=== PATIENT | male | born 1950 | race Caucasian/White ===

== ENCOUNTER → 2024-03-07 18:57 | Outpatient (REF) | payer MEDICARE, OTHER, SELFPAY | LOC: MRI 3T 18:57 | PROVIDERS: ATTENDING PHYSICIAN Specialist; FAMILY PHYSICIAN Family Medicine | DX: R97.20 Elevated prostate specific antigen [PSA] (principal) | CPT/HCPCS: 72197; A9575 ==

== ENCOUNTER → 2024-03-20 09:27 | Outpatient (REF) | payer MEDICARE, OTHER, SELFPAY | LOC: CLAB 09:27 | PROVIDERS: ATTENDING PHYSICIAN Specialist | DX: R97.20 Elevated prostate specific antigen [PSA] (principal) | CPT/HCPCS: 88305; 88344 ==

== ENCOUNTER 2024-04-23 11:24 | Outpatient (RCR) | payer MEDICARE, OTHER, SELFPAY | END 2024-04-23 23:59 | disposition home or self-care (01) | LOC: RPT 11:24 | PROVIDERS: ATTENDING PHYSICIAN Specialist; FAMILY PHYSICIAN Family Medicine | DX: M62.81 Muscle weakness (generalized) (principal); C61 Malignant neoplasm of prostate; Z73.6 Limitation of activities due to disability | CPT/HCPCS: 97162; 97530 ==

== ENCOUNTER 2024-06-04 06:08 | Inpatient (IN) | payer MEDICARE, OTHER, SELFPAY ==
[2024-05-20 11:30] LABS: Hemoglobin 15.8 g/dL (13.0-18.0); Mean Corp Hgb Conc. 35.9 g/dL (33.0-37.0); Mean Corpuscular Hgb 35.2 pg (27.0-31.0); Platelet Count 187 10^3/uL (130-400); Red Blood Cell Count 4.49 10^6/uL (4.70-6.10); Red Cell Dist. Width 12.3 % (11.5-14.5); White Blood Cell Count 5.9 10^3/uL (4.8-10.8)
[2024-05-20 11:37] LABS: INR 0.98; PT 13.3 Sec (11.4-14.6)
[2024-05-20 11:38] LABS: APTT 31.1 Sec (23.4-35.0)
[2024-05-20 11:58] LABS: Blood Urea Nitrogen 20 mg/dl (9-20); Calcium 9.4 mg/dl (8.4-10.2); Carbon Dioxide 30 mmol/L (22-30); Chloride 98 mmol/L (98-107); Glucose 90 mg/dl (70-99); Sodium 138 mmol/L (135-145); eGFR > 60.00
[2024-05-20 12:05] LABS: Potassium 3.4 mmol/L (3.5-5.1)
[2024-05-20 13:41] VITALS: BMI 27.9
--- NOTE | 2024-05-30 09:44 | PTCARENOTE ---
Patients 05/20 jermain Dawkins @ Dr. Johnson office notified
--- NOTE | 2024-05-30 15:28 | PTCARENOTE ---
K+3.4, Dr. Khanna Notified, no additional interventions requested.
[2024-06-04] VITALS (16 sets, daily range): BP systolic 126–151; BP diastolic 74–98; BMI 27.9
[2024-06-04] MEDS: NEBCIN 480 MG/100 ML ENEMA 1 BOTTLE RECTAL (06:53)
[2024-06-04] MEDS: NORMOSOL-R/PLASMALYTE-A 1000 IV (06:53)
--- NOTE | 2024-06-04 09:45 | W.IMMPOSTOP ---
Surgical Immed Post Op Note
-
Primary Surgeon: Elizabeth
Assisting Surgeon: Dwain
Pre-op Diagnosis: Prostate cancer
Post-op Diagnosis: Same
Procedure Performed: Radical perineal prostatectomy, bladder neck reconstruction
Anesthesia Type:GET
Specimen / Cultures: Prostate, bladder neck and urethral frozen sections
Estimated Blood Loss: 150 ml
Complications: None
[2024-06-04] MEDS: DETROL LA 4 MG PO (10:13)
[2024-06-04] MEDS: DILAUDID 0.5 MG IV ×2 (10:14→10:35)
[2024-06-04 10:15] LABS: Hematocrit 37.3 % (39.0-52.0)
[2024-06-04] MEDS: TORADOL 15 MG IV ×3 (10:22→21:55)
[2024-06-04 10:26] LABS: Blood Urea Nitrogen 16 mg/dl (9-20); Calcium 7.9 mg/dl (8.4-10.2); Carbon Dioxide 29 mmol/L (22-30); Chloride 102 mmol/L (98-107); Estimated Creatinine Clearance 74 ml/min; Glucose 104 mg/dl (70-99); Potassium 3.2 mmol/L (3.5-5.1); Sodium 138 mmol/L (135-145); eGFR > 60.00
[2024-06-04] MEDS: VALIUM INJECTION 5 MG IV (10:43)
--- NOTE | 2024-06-04 11:08 | SUR.PHASEI ---
patient in pacu post prostatectomy - - medicated with dilaudid x2 for pain, rectal pressure- still very uncomfortable, given toradol, detrol and then given valium 5mg slowly - comfort increased with valium, nasal cannula restarted for sats drop to
88% after Valium. taking oral fluids well. Dressing reinforced on arrival with 5x9 dressing. ice pack to rectal area.
--- NOTE | 2024-06-04 11:40 | PTCARENOTE ---
Pt received from the PACU via bed. Transport was w/o incident. Pt is AAOx3, HRR, lungs are clear, resp. easy. Pt with bulky dressing to Perineum, C/D/I. Pt does have a sherin drain to perineal area. Drainage to be expected. Will reinforce dressing
or change PRN. Dahl cath intact draining sl blood tinged urine. VSS, Pt is afebrile. Pt instructed on Plan of care, Pt verbalized understanding of instructions. Call tavera is within reach.
[2024-06-04] MEDS: 0.45% NACL with KCL 20 MEQ 1000 IV ×2 (14:03→20:29)
[2024-06-04] MEDS: MORPHINE SULFATE 4 MG IV ×2 (14:07→18:02)
[2024-06-04] MEDS: PERCOCET 5/325 1 TABLET PO (16:46)
[2024-06-04] MEDS: MYLICON 160 MG PO (16:47)
[2024-06-04] MEDS: PROCARDIA XL (EXTENDED RELEASE) 30 MG PO (16:47)
[2024-06-04] MEDS: POLYSPORIN/DOUBLE ANTIBIOTIC 1 APPLIC TOPICAL (20:20)
[2024-06-04 20:32] LABS: Blood Urea Nitrogen 16 mg/dl (9-20); Carbon Dioxide 30 mmol/L (22-30); Chloride 96 mmol/L (98-107); Estimated Creatinine Clearance 74 ml/min; Glucose 121 mg/dl (70-99); Potassium 4.2 mmol/L (3.5-5.1); Sodium 133 mmol/L (135-145); eGFR > 60.00
[2024-06-04] MEDS: ATIVAN 0.5 MG PO (23:32)
[2024-06-04] MEDS: MELATONIN 5 MG PO (23:32)
[2024-06-05] MEDS: 0.45% NACL with KCL 20 MEQ 1000 IV ×3 (03:23→20:21)
[2024-06-05] MEDS: TORADOL 15 MG IV ×3 (03:23→15:50)
--- NOTE | 2024-06-05 03:47 | DOWNTIME ---
There was a [employer] Downtime on 06/05/2024 from 0100 to 06/05/2023 at 0205 . Downtime documentation of patient's care, including medication administrations, has been reconciled in the electronic record per guidelines. Refer to the
patient's paper chart under the miscellaneous tab to see printed paper medication records and downtime forms.
[2024-06-05 03:50] VITALS: BP 121/74
[2024-06-05 07:45] VITALS: BP 127/70
[2024-06-05] MEDS: LEVAQUIN 100 IV (07:54)
[2024-06-05] MEDS: ORETIC 25 MG PO (07:55)
[2024-06-05] MEDS: COLACE 100 MG PO (07:55)
[2024-06-05] MEDS: PROCARDIA XL (EXTENDED RELEASE) 90 MG PO (07:55)
[2024-06-05] MEDS: VALTREX 1000 MG PO (07:55)
[2024-06-05] MEDS: TUMS CHEWABLE TABLET PO (07:56)
[2024-06-05] MEDS: POLYSPORIN/DOUBLE ANTIBIOTIC 1 APPLIC TOPICAL ×2 (07:56→20:03)
[2024-06-05 08:14] LABS: Hematocrit 31.7 % (39.0-52.0); Hemoglobin 11.4 g/dL (13.0-18.0); Mean Corpuscular Hgb 34.7 pg (27.0-31.0); Mean Corpuscular Volume 96.4 fL (80.0-94.0); Mean Platelet Volume 10.4 fL (7.4-10.4); Platelet Count 130 10^3/uL (130-400); Red Blood Cell Count 3.29 10^6/uL (4.70-6.10); Red Cell Dist. Width 12.4 % (11.5-14.5); White Blood Cell Count 9.7 10^3/uL (4.8-10.8)
[2024-06-05 08:34] LABS: Blood Urea Nitrogen 14 mg/dl (9-20); Calcium 7.6 mg/dl (8.4-10.2); Carbon Dioxide 28 mmol/L (22-30); Chloride 101 mmol/L (98-107); Estimated Creatinine Clearance 83 ml/min; Glucose 85 mg/dl (70-99); Potassium 3.4 mmol/L (3.5-5.1); Sodium 134 mmol/L (135-145); eGFR > 60.00
[2024-06-05] MEDS: PERCOCET 5/325 1 TABLET PO ×3 (09:13→20:03)
--- NOTE | 2024-06-05 09:29 | W.PN.SURGUPD ---
Addendum entered and electronically signed by Aquiles Johnson MD 06/11/24 10:21:
Please note: the patient's hypokalemia, not hyponatremia, is likely due to use of HCTZ
Addendum entered and electronically signed by Aquiles Johnson MD 06/11/24 09:56:
The patient has hyponatremia, which he has had prior to hospitalization. It is likley due to use of HCTZ and has been addressed with the patient's PCP
His low serum Na+ is an insignificant lab value
His anemia is expected and related to surgical acute blood loss
Original Note:
Surgical Update
Surgical Update
Stable 1 day s/p radical perineal prostatectomy
Afeb
VSS
Tolerating diet
Flatus
Dahl draining clear urine
Dressing dry
--- NOTE | 2024-06-05 12:25 | CM ---
Patient seen at bedside.
IA completed. CM Consult completed VN-prefer [facility]-referral entered
Lives with in 2 story home, 0 steps, 12 steps to second floor
PLOF: Independent
Denies DME
Denies insecurities
Denies HH/Rehab
PCP: Gerson Luna
Pharmacy: [facility], [place]
PLAN: home, [facility]
--- NOTE | 2024-06-05 13:12 | VNURNOTE ---
Home Health Liaison met with patient at bedside to discuss [facility] nurse/therapy, visits, schedule and homebound status. Reviewed that visits at home will be 2-3 x per week to assess and teach medical management. Reviewed with pt that standard to have
VN ordered after rad prostatectomy. Multiple questions answered. VN brochure provided with contact information. Patient is aware that [facility] will contact them for start of care in 1-2 days after discharge from . Patient wants to speak w/his
about services. 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 Patient stated she would be in. Will follow up. [facility] referral accepted in [facility].
[2024-06-05 15:32] VITALS: BP 136/92
[2024-06-05] MEDS: 0.45% NACL with KCL 20 MEQ IV (15:50)
[2024-06-05] MEDS: PROCARDIA XL (EXTENDED RELEASE) 30 MG PO (17:51)
[2024-06-05] MEDS: ATIVAN 0.5 MG PO (23:05)
[2024-06-05] MEDS: MORPHINE SULFATE 4 MG IV (23:09)
[2024-06-05 23:36] VITALS: BP 138/82
[2024-06-06] MEDS: PERCOCET 5/325 1 TABLET PO ×2 (00:46→12:37)
--- NOTE | 2024-06-06 05:34 | PTCARENOTE ---
06/05: On-call urology Dr. Roque made aware sherin drain fell out. No new orders at this time.
[2024-06-06 07:45] VITALS: BP 147/92
--- NOTE | 2024-06-06 08:06 | PN.CDI ---
CDI
- -
CDI:
Physician Documentation Request
Admit Date: 06/04/24 06:08
Dear Doctor Elizabeth,
Patient admitted with prostate cancer s/p radical perineal prostatectomy, bladder neck reconstruction.
Hgb levels documented below:
Laboratory Tests
05/20/24 06/04/24 06/05/24
10:50 10:06 07:09
Hgb 15.8 13.0 11.4 L
Based on the above, please clarify in your note which is the most likely diagnosis you are evaluating, monitoring and/or treating?
Acute blood loss anemia
Insignificant abnormal lab finding
Other
Use of terms such as suspected, likely, concern for, or probable (associated with a specific diagnosis that is being evaluated, monitored, or treated as if it exists) are acceptable and can be coded in the inpatient setting, when documented at the
time of discharge.
Thank you,
Carey CRUZ,RN,CCDS
CDI Specialist
Available via [place] text
Please use your independent medical judgment in providing your response.
--- NOTE | 2024-06-06 08:24 | PN.CDI ---
CDI
- -
CDI:
Physician Documentation Request
Admit Date: 06/04/24 06:08
Dear Doctor Elizabeth,
Patient admitted with prostate cancer s/p radical perineal prostatectomy, bladder neck reconstruction.
Na levels documented below:
Laboratory Tests
06/04/24 06/04/24 06/05/24
10:05 20:06 07:09
Sodium 138 133 L 134 L
Based on the above, please clarify in your note which is the most likely diagnosis you are evaluating, monitoring and/or treating?
Hyponatremia
Insignificant abnormal lab findings
Other
Use of terms such as suspected, likely, concern for, or probable (associated with a specific diagnosis that is being evaluated, monitored, or treated as if it exists) are acceptable and can be coded in the inpatient setting, when documented at the
time of discharge.
Thank you,
Carey CRUZ,RN,CCDS
CDI Specialist
Available via [employer] text
Please use your independent medical judgment in providing your response.
--- NOTE | 2024-06-06 08:39 | PN.CDI ---
CDI
- -
CDI:
Physician Documentation Request
Admit Date: 06/04/24 06:08
Dear Doctor Elizabeth,
Patient admitted with prostate cancer s/p radical perineal prostatectomy, bladder neck reconstruction.
K levels documented below:
Patient received IV Potassium.
Laboratory Tests
05/20/24 06/04/24 06/05/24
10:50 10:05 07:09
Potassium 3.4 L 3.2 L 3.4 L
Based on the above, please clarify in your note which is the most likely diagnosis you are evaluating, monitoring and/or treating?
Hypokalemia
Insignificant abnormal lab finding
Other
Use of terms such as suspected, likely, concern for, or probable (associated with a specific diagnosis that is being evaluated, monitored, or treated as if it exists) are acceptable and can be coded in the inpatient setting, when documented at the
time of discharge.
Thank you,
Carey CRUZ,RN,CCDS
CDI Specialist
Available via tiger text
Please use your independent medical judgment in providing your response.
--- NOTE | 2024-06-06 09:21 | VNURNOTE ---
Call placed to patient's spouse Carey to further explain [facility] services/address any questions. No answer, left message.
--- NOTE | 2024-06-06 09:50 | VNURNOTE ---
VN spoke with spouse Carey. She is agreeable to [facility]. All questions answered. She is aware that [facility] will contact pt within 1-2 days after DC to arrange start of care visit.
[2024-06-06] MEDS: LEVAQUIN 100 IV (09:58)
[2024-06-06] MEDS: POLYSPORIN/DOUBLE ANTIBIOTIC 1 APPLIC TOPICAL (09:58)
[2024-06-06] MEDS: PROCARDIA XL (EXTENDED RELEASE) 90 MG PO (09:59)
[2024-06-06] MEDS: COLACE 100 MG PO (09:59)
[2024-06-06] MEDS: ORETIC 25 MG PO (10:00)
[2024-06-06] MEDS: TUMS CHEWABLE TABLET 800 MG PO (10:00)
[2024-06-06] MEDS: VALTREX 1000 MG PO (10:00)
--- NOTE | 2024-06-06 10:37 | W.DS.TRANS ---
DC Summary - Contact Center Specialist
-
Discharge Instructions:
Sleep Apnea Risk Intermediate
Instructions:
Stand-Alone Forms:
Changes to Home Medications: No
Discharge Medications:
DC Medications w/original date entered in [employer]
Tumeric 1 dose PO BID Supplement 05/28/24
calcium carbonate 800 mg PO DAILY Supplement 05/28/24
docusate sodium 100 mg capsule 100 mg PO DAILY Constipation 05/28/24
fluticasone propionate 50 mcg/actuation nasal spray,suspension 1 spray intranasal DAILY PRN congestion 05/28/24
glucosamine sulf dipot chlr,msm,chond 550 mg-C 30 mg-mary grace 1 mg capsule (Glucosamine Chondroitin) 1 cap PO BID Supplement 05/28/24
hydrochlorothiazide 25 mg tablet 25 mg PO DAILY Fluid Retention/Swelling 05/28/24
lorazepam 0.5 mg tablet 0.5 mg PO HS Mental Health/Anxiety 05/28/24
melatonin 5 mg tablet 5 mg PO HS PRN insomnia 05/28/24
methylphenidate HCl 5 mg tablet 5 mg PO DAILY PRN ADD 05/28/24
multivitamin 1 tab PO DAILY Supplement 05/28/24
nifedipine 30 mg tablet,extended release 30 mg PO QPM Blood Pressure 05/28/24
nifedipine 90 mg tablet,extended release 90 mg PO DAILY Blood Pressure 05/28/24
omega 7-dfo-rup-fish oil 1,000 mg (120 mg-180 mg) capsule (Fish Oil) 1 cap PO DAILY Supplement 05/28/24
simethicone 125 mg chewable tablet 125 mg PO QID PRN bloating 05/28/24
tadalafil 2.5 mg tablet 2.5 mg PO BID Phosphodiesterase-5 Enzym 05/28/24
valacyclovir 500 mg tablet 1,000 mg PO DAILY Infection 05/28/24
Home Medication Changes
Pending Results: No
--- NOTE | 2024-06-06 11:04 | CM ---
Pt for discharge today
[facility] to follow
Has ride home
Given IMM
Plan -anticipate home with [facility]
[2024-06-06 12:49] VITALS: BP 149/91
== END 2024-06-06 15:28 | disposition home health service (06) | DRG 707 ==
LOC: 2 SOUTH 06:08
PROVIDERS: ADMITTING PHYSICIAN Specialist; FAMILY PHYSICIAN Family Medicine
PROC: 0VT30ZZ Resection of Bilateral Seminal Vesicles, Open Approach (ICD-10-PCS; 2024-06-04)
PROC: 0VT00ZZ Resection of Prostate, Open Approach (ICD-10-PCS; 2024-06-04)
DX: C61 Malignant neoplasm of prostate (principal); D62 Acute posthemorrhagic anemia; E87.1 Hypo-osmolality and hyponatremia; Z88.0 Allergy status to penicillin; I10 Essential (primary) hypertension; E21.0 Primary hyperparathyroidism; Z87.891 Personal history of nicotine dependence; E87.6 Hypokalemia; T50.2X5A Adverse effect of carbonic-anhydrase inhibitors, benzothiadiazides and other diuretics, initial encounter
CPT/HCPCS: 88305; 88309; 88332; 36415; 80048; 85014; 85018; 85027; 85610; 85730; 86850; 86900; 86901; 88331; 93005; A4648; J3480

== ENCOUNTER 2024-07-30 11:13 | Outpatient (RCR) | payer MEDICARE, OTHER, SELFPAY | END 2024-07-30 23:59 | disposition home or self-care (01) | LOC: RPT 11:13 | PROVIDERS: ATTENDING PHYSICIAN Specialist; FAMILY PHYSICIAN Family Medicine | DX: M62.81 Muscle weakness (generalized) (principal); C61 Malignant neoplasm of prostate; N39.3 Stress incontinence (female) (male); N39.41 Urge incontinence; R10.2 Pelvic and perineal pain; Z73.6 Limitation of activities due to disability | CPT/HCPCS: 97110; 97140; 97164; 97530 ==

== ENCOUNTER 2024-09-10 15:07 | Outpatient (RCR) | payer MEDICARE, OTHER, SELFPAY | END 2024-09-10 23:59 | disposition home or self-care (01) | LOC: RPT 15:07 | PROVIDERS: ATTENDING PHYSICIAN Specialist; FAMILY PHYSICIAN Family Medicine | DX: M62.81 Muscle weakness (generalized) (principal); C61 Malignant neoplasm of prostate; N39.3 Stress incontinence (female) (male); N39.41 Urge incontinence; R10.2 Pelvic and perineal pain; Z73.6 Limitation of activities due to disability | CPT/HCPCS: 97110; 97530 ==

== ENCOUNTER 2024-12-25 06:23 | Day surgery (SDC) | payer MEDICARE, OTHER, SELFPAY | END 2024-12-25 09:09 | disposition home or self-care (01) | LOC: GI 06:23 | PROVIDERS: ATTENDING PHYSICIAN Internal Medicine Gastroenterology; FAMILY PHYSICIAN Family Medicine | DX: Z12.11 Encounter for screening for malignant neoplasm of colon (principal); K64.8 Other hemorrhoids; D12.2 Benign neoplasm of ascending colon; K63.5 Polyp of colon; Z86.0100 Personal history of colon polyps, unspecified | CPT/HCPCS: 45385; 88305 ==